=== PATIENT | male | born 1930 | race Caucasian/White ===

== ENCOUNTER 2020-07-23 13:45 | Inpatient (IN) ==
[2020-07-24] MEDS ORDERED: *HR* Warfarin 4 MG TABLET PO SCH (11:00)
[2020-07-24] MEDS ORDERED: Ipratropium/Albuterol Neb 3 ML IH PRN (11:00)
[2020-07-24] MEDS ORDERED: Warfarin perPT PO PRN (18:00)
[2020-07-24] MEDS ORDERED: *HR* Warfarin 2 MG TABLET PO ONE (18:00)
[2020-07-24] MEDS: Budesonide/Formoterol 80/4.5 1 PUFF INH IH SCH (20:13)
[2020-07-25 04:49] LABS: Basophils % 0.3 %; Eosinophils # 0.3 K/mcL (0.0-0.6); Eosinophils % 4.2 %; Hemoglobin 13.9 g/dL (12.9-16.9); Immature Granulocytes % 0.4 % (0-4); Lymphocytes # 1.7 K/mcL (0.6-4.6); Lymphocytes % 23.2 %; Mean Corpuscular HGB Conc 32.3 g/dL (31.6-35.5); Mean Corpuscular Hemoglobin 31.9 pg (28.0-33.3); Mean Corpuscular Volume 98.6 fL (83.0-100.0); Mean Platelet Volume 10.1 fL (9.4-12.4); Monocytes # 0.9 K/mcL (0.0-1.3); Monocytes % 12.3 %; Neutrophils # 4.4 K/mcL (1.6-8.9); Platelet Count 149 K/mcL (140-400); Red Blood Count 4.36 M/mcL (4.19-5.50); Red Cell Distribution Width 15.5 % (11.5-14.5); Segmented Neutrophils % 59.6 %; White Blood Count 7.4 K/mcL (4.3-11.1)
[2020-07-25 05:05] LABS: BUN/Creatinine Ratio 19 (6-26); Blood Urea Nitrogen 23 mg/dL (8-23); Calcium 8.3 mg/dL (8.6-10.3); Carbon Dioxide 28 mEq/L (23-29); Chloride 104 mEq/L (98-107); Glucose 104 mg/dL (70-105); Osmolality,Calculated 288 (280-300); Potassium 4.3 mEq/L (3.5-5.1); Sodium 137 mEq/L (136-145); eGFR For African Americans > 60 (> 60); eGFR For Non-African Americans 56 (> 60)
[2020-07-25 05:14] LABS: INR 2.4; Prothrombin Time 26.8 Seconds (9.4-12.1)
[2020-07-25] MEDS: Multivit/Ca/Min/Fe/FA 1 TAB TABLET PO SCH (07:44)
[2020-07-25] MEDS: allopurinoL 100 MG TABLET PO SCH (07:44)
[2020-07-25] MEDS: Magnesium Oxide 400 MG TABLET PO SCH (07:44)
[2020-07-25] MEDS: Isosorbide MONOnitrate (24 HR) 30 MG TAB.ER.24H PO SCH (07:44)
[2020-07-25] MEDS: polyethylene glycoL 3350 17 GM POWD.PACK PO SCH (07:44)
[2020-07-25] MEDS: Aspirin 81 MG TAB.CHEW PO SCH (07:44)
[2020-07-25] MEDS: Cholecalciferol (D-3) 1,000 UNIT (25MCG) TABLET PO SCH (07:44)
[2020-07-25] MEDS: Budesonide/Formoterol 80/4.5 1 PUFF INH IH SCH ×2 (10:01→22:10)
[2020-07-25] MEDS ORDERED: *HR* Warfarin 2 MG TABLET PO SCH (11:00)
[2020-07-25] MEDS ORDERED: *HR* Warfarin 4 MG TABLET PO ONE (18:00)
[2020-07-26 05:19] LABS: INR 2.4; Prothrombin Time 26.9 Seconds (9.4-12.1)
[2020-07-26] MEDS: Magnesium Oxide 400 MG TABLET PO SCH (09:05)
[2020-07-26] MEDS: Multivit/Ca/Min/Fe/FA 1 TAB TABLET PO SCH (09:05)
[2020-07-26] MEDS: Aspirin 81 MG TAB.CHEW PO SCH (09:05)
[2020-07-26] MEDS: Isosorbide MONOnitrate (24 HR) 30 MG TAB.ER.24H PO SCH (09:05)
[2020-07-26] MEDS: Cholecalciferol (D-3) 1,000 UNIT (25MCG) TABLET PO SCH (09:05)
[2020-07-26] MEDS: allopurinoL 100 MG TABLET PO SCH (09:05)
[2020-07-26] MEDS: polyethylene glycoL 3350 17 GM POWD.PACK PO SCH (09:09)
[2020-07-26] MEDS: Budesonide/Formoterol 80/4.5 1 PUFF INH IH SCH ×2 (10:24→22:01)
[2020-07-26] MEDS ORDERED: *HR* Warfarin 2 MG TABLET PO ONE (18:00)
[2020-07-27 06:34] LABS: INR 2.4; Prothrombin Time 27.6 Seconds (9.4-12.1)
[2020-07-27] MEDS: Aspirin 81 MG TAB.CHEW PO SCH (09:34)
[2020-07-27] MEDS: Isosorbide MONOnitrate (24 HR) 30 MG TAB.ER.24H PO SCH (09:34)
[2020-07-27] MEDS: polyethylene glycoL 3350 17 GM POWD.PACK PO SCH (09:35)
[2020-07-27] MEDS: allopurinoL 100 MG TABLET PO SCH (09:35)
[2020-07-27] MEDS: Cholecalciferol (D-3) 1,000 UNIT (25MCG) TABLET PO SCH (09:35)
[2020-07-27] MEDS: Multivit/Ca/Min/Fe/FA 1 TAB TABLET PO SCH (09:35)
[2020-07-27] MEDS: Magnesium Oxide 400 MG TABLET PO SCH (09:35)
[2020-07-27] MEDS: Budesonide/Formoterol 80/4.5 1 PUFF INH IH SCH ×2 (10:07→21:35)
[2020-07-27] MEDS ORDERED: *HR* Warfarin 4 MG TABLET PO ONE (18:00)
[2020-07-28 05:04] LABS: INR 2.4; Prothrombin Time 27.1 Seconds (9.4-12.1)
[2020-07-28] MEDS: Magnesium Oxide 400 MG TABLET PO SCH (08:39)
[2020-07-28] MEDS: allopurinoL 100 MG TABLET PO SCH (08:39)
[2020-07-28] MEDS: Multivit/Ca/Min/Fe/FA 1 TAB TABLET PO SCH (08:39)
[2020-07-28] MEDS: polyethylene glycoL 3350 17 GM POWD.PACK PO SCH (08:39)
[2020-07-28] MEDS: Isosorbide MONOnitrate (24 HR) 30 MG TAB.ER.24H PO SCH (08:40)
[2020-07-28] MEDS: Cholecalciferol (D-3) 1,000 UNIT (25MCG) TABLET PO SCH (08:40)
[2020-07-28] MEDS: Aspirin 81 MG TAB.CHEW PO SCH (08:40)
[2020-07-28] MEDS: Budesonide/Formoterol 80/4.5 1 PUFF INH IH SCH ×2 (11:11→21:24)
[2020-07-28] MEDS ORDERED: *HR* Warfarin 2 MG TABLET PO ONE (18:00)
[2020-07-29 04:58] LABS: INR 2.5; Prothrombin Time 28.5 Seconds (9.4-12.1)
[2020-07-29] MEDS: Cholecalciferol (D-3) 1,000 UNIT (25MCG) TABLET PO SCH (07:26)
[2020-07-29] MEDS: Isosorbide MONOnitrate (24 HR) 30 MG TAB.ER.24H PO SCH (07:26)
[2020-07-29] MEDS: Multivit/Ca/Min/Fe/FA 1 TAB TABLET PO SCH (07:26)
[2020-07-29] MEDS: Aspirin 81 MG TAB.CHEW PO SCH (07:26)
[2020-07-29] MEDS: Magnesium Oxide 400 MG TABLET PO SCH (07:26)
[2020-07-29] MEDS: allopurinoL 100 MG TABLET PO SCH (07:26)
[2020-07-29] MEDS: polyethylene glycoL 3350 17 GM POWD.PACK PO SCH (07:27)
[2020-07-29] MEDS: Budesonide/Formoterol 80/4.5 1 PUFF INH IH SCH ×2 (09:31→22:47)
[2020-07-29] MEDS ORDERED: *HR* Warfarin 2 MG TABLET PO SCH (18:00)
[2020-07-30 06:57] VITALS: BP 137/82
[2020-07-30] MEDS: Budesonide/Formoterol 80/4.5 1 PUFF INH IH SCH (08:20)
[2020-07-30] MEDS: Multivit/Ca/Min/Fe/FA 1 TAB TABLET PO SCH (08:52)
[2020-07-30] MEDS: polyethylene glycoL 3350 17 GM POWD.PACK PO SCH (08:52)
[2020-07-30] MEDS: Cholecalciferol (D-3) 1,000 UNIT (25MCG) TABLET PO SCH (08:52)
[2020-07-30] MEDS: Aspirin 81 MG TAB.CHEW PO SCH (08:52)
[2020-07-30] MEDS: Magnesium Oxide 400 MG TABLET PO SCH (08:52)
[2020-07-30] MEDS: allopurinoL 100 MG TABLET PO SCH (08:53)
[2020-07-30] MEDS: Isosorbide MONOnitrate (24 HR) 30 MG TAB.ER.24H PO SCH (08:53)
[2020-07-30] MEDS ORDERED: *HR* Warfarin 4 MG TABLET PO SCH (18:00)
== END 2020-07-30 11:25 | disposition home health service (06) | DRG 945 ==
LOC: INPGRE 07-24 10:42
PROVIDERS: ADMIT Family Medicine; ATTEND Family Medicine